=== PATIENT | female | born 1960 | race Caucasian/White ===

== ENCOUNTER 2022-01-11 05:36 | Observation (INO) ==
[2022-01-10 12:16] LABS: INR 0.9; PT Patient Result 10.6 SECS (10.5-12.0); Partial Thromboplastin Time 25.4 SECS (23.8-32.1)
[2022-01-11] MEDS ORDERED: MIDAZOLAM 2 MG/2 ML VIAL ONE (06:12)
[2022-01-11] MEDS ORDERED: fentaNYL 100 MCG/2 ML VIAL ONE (06:12)
[2022-01-11] MEDS ORDERED: KETAMINE 500 MG/10 ML VIAL ONE (06:13)
[2022-01-11] MEDS ORDERED: ROPIVACAINE 0.5% 30 ML VIAL ONE (06:22)
[2022-01-11] MEDS ORDERED: DEXAMETHASONE 4 MG/1 ML VIAL ONE (06:22)
[2022-01-11] MEDS ORDERED: GABAPENTIN 400 MG CAPSULE PO ONE (06:24)
[2022-01-11] MEDS ORDERED: ACETAMINOPHEN 500 MG TABLET PO ONE (06:24)
[2022-01-11] MEDS ORDERED: VANCOMYCIN INJ 1,000 MG in SODIUM CHLORIDE 0.9% 250 ML IV ONE (06:30)
[2022-01-11] MEDS: LACTATED RINGERS 1,000 ML IV SCH ×2 (06:36→07:30)
[2022-01-11] MEDS ORDERED: BACITRACIN OINT 0.9 GM PACK TOP ONE (06:52)
[2022-01-11] MEDS ORDERED: PHENYLEPHRINE 1 MG/10 ML SYRINGE IV ONE ×2 (07:39→07:50)
[2022-01-11] MEDS ORDERED: LIDOCAINE 2% 5 ML VIAL ONE (07:39)
[2022-01-11] MEDS ORDERED: BUPIVACAINE SPINAL 0.75% 2 ML AMP SPINAL ONE (07:39)
[2022-01-11] MEDS ORDERED: SODIUM CHLORIDE 0.9% 500 ML IV ONE (07:39)
[2022-01-11] MEDS ORDERED: ONDANSETRON 4 MG/2 ML VIAL ONE (07:39)
[2022-01-11] MEDS ORDERED: TRANEXAMIC ACID 1,000 MG/10 ML VIAL ONE (07:39)
[2022-01-11] MEDS ORDERED: propofoL 200 MG/20 ML VIAL IV ONE (07:39)
[2022-01-11] MEDS ORDERED: LACTATED RINGERS 1,000 ML IV ONE (07:40)
[2022-01-11] MEDS ORDERED: KETOROLAC 30 MG/1 ML VIAL ONE (07:57)
[2022-01-11] MEDS ORDERED: GLUCAGON 1 MG VIAL IM PRN (08:28)
[2022-01-11] MEDS ORDERED: ONDANSETRON 4 MG/2 ML VIAL IV PRN (08:29)
[2022-01-11] MEDS ORDERED: MAGNESIUM HYDROXIDE SUSP 30 ML UDCUP PO PRN (08:29)
[2022-01-11] MEDS ORDERED: diphenhydrAMINE CAP 25 MG CAPSULE PO PRN (08:29)
[2022-01-11] MEDS ORDERED: MORPHINE 2 MG/1 ML SYRINGE IV PRN ×2 (08:29)
[2022-01-11] MEDS ORDERED: DEXTROSE 10% 250 ML BAG IV PRN (09:03)
[2022-01-11] MEDS: KETOROLAC 30 MG/1 ML VIAL IV SCH ×3 (15:00→21:18)
[2022-01-11] MEDS: INSULIN LISPRO 100 UNIT/ML SUBCUT SCH ×3 (17:13→21:19)
[2022-01-11] MEDS: ceFAZolin 2,000 MG/50 ML DUPLEX IV SCH ×2 (17:13→21:19)
[2022-01-11] MEDS ORDERED: LORazepam 1 MG TABLET PO SCH (21:00)
[2022-01-11] MEDS: APIXABAN 2.5 MG TABLET PO SCH (21:19)
[2022-01-11] MEDS: DOCUSATE SODIUM 100 MG CAPSULE PO SCH (21:19)
[2022-01-12] MEDS: LACTATED RINGERS 1,000 ML IV SCH ×3 (05:20→10:58)
[2022-01-12] MEDS: KETOROLAC 30 MG/1 ML VIAL IV SCH (06:15)
[2022-01-12 06:52] LABS: Basophils % 0.2 % (0.0-0.8); Eosinophils % 0.1 % (0.00-10.9); Hematocrit 38.4 VOL% (35.7-47.0); Hemoglobin 12.6 GM/DL (12.0-16.0); Immature Granulocytes % 0.4 %; Immature Granulocytes Absolute 0.05 #; Lymphocytes # 2.1 10*3/uL (1.4-4.0); Lymphocytes % 18.7 % (21.3-54.2); Mean Corpuscular HGB Conc 32.8 GM/DL (32-36); Mean Corpuscular Volume 84.8 FL (87-102); Mean Platelet Volume 11.2 FL (9.6-12.0); Neutrophils % 72.6 % (38.7-73.9); Platelet Count 205 T/CUMM (130-400); Red Blood Count 4.53 MC/CUMM (3.8-5.5); Red Cell Distribution Width 12.7 % (9.3-17.3); White Blood Count 11.3 T/CUMM (4-12)
[2022-01-12 07:11] LABS: Calcium 8.2 MG/DL (8.5-10.1); Osmolality,Calculated 289.3 MOS/KG (273-304)
[2022-01-12] MEDS: INSULIN LISPRO 100 UNIT/ML SUBCUT SCH ×2 (08:54→12:11)
[2022-01-12] MEDS: DOCUSATE SODIUM 100 MG CAPSULE PO SCH (08:55)
[2022-01-12] MEDS: APIXABAN 2.5 MG TABLET PO SCH (08:55)
[2022-01-12] MEDS ORDERED: lisinopriL 20 MG TABLET PO SCH (09:00)
[2022-01-12 12:07] VITALS: BP 138/61
== END 2022-01-12 15:01 | disposition home health service (06) ==
LOC: N.OR 05:36 → N.SDSINP 05:38 → INTOOBSV 08:29 → N.3E 16:12
PROVIDERS: ADMIT Orthopaedic Surgery; ATTEND Orthopaedic Surgery